=== PATIENT | male | born 1985 | race African-American/Black ===

== ENCOUNTER 2019-01-07 11:03 | Emergency (ER) | payer MEDICAID, OTHER ==
[~2019-01-07] VITALS: Ht 182.9 cm; Wt 102.3 kg
[~2019-01-07 11:03] MED LIST: DIVA-78 PO; LITH600 PO; QUET300T2 PO
[2019-01-07] MEDS ORDERED: QUEtiapine FUMARATE 100 MG TABLET PO ONE (12:00)
[2019-01-07 12:05] LABS: BASOPHILS % (AUTO) 0.8 % (0.0-2.0); EOSINOPHILS % (AUTO) 2.6 % (1.0-6.0); HEMATOCRIT 45.5 % (41-53); HEMOGLOBIN 14.9 g/dL (13.5-17.5); LYMPHOCYTES # (AUTO) 2.1 K/uL (1.0-4.8); LYMPHOCYTES % (AUTO) 20.8 % (22.0-44.0); MEAN CORPUSCULAR HEMOGLOBIN 31.4 pg (26.0-34.0); MEAN CORPUSCULAR HGB CONC 32.7 G/dL (31.0-37.0); MEAN CORPUSCULAR VOLUME 96 fL (80-100); MONOCYTES # (AUTO) 0.6 K/uL (0.1-1.0); MONOCYTES % (AUTO) 6.3 % (2.0-9.0); NEUTROPHILS % (AUTO) 69.5 % (40.0-70.0); PLATELET COUNT (AUTO) 271 K/uL (150-450); RED BLOOD CELL COUNT(AUTO) 4.74 MIL/uL (4.50-5.90); RED CELL DISTRIBUTION WIDTH 13.4 % (11.5-14.5)
[2019-01-07 12:17] LABS: LITHIUM 0.42 mmol/L (0.60-1.20)
[2019-01-07 12:22] LABS: ALANINE AMINOTRANSFERASE 91 U/L (12-78); ALBUMIN 4.1 g/dL (3.4-5.0); ALKALINE PHOSPHATASE 63 U/L (46-116); ANION GAP 14 mmol/L (8-16); ASPARTATE AMINOTRANSFERASE 83 U/L (15-37); BILIRUBIN,TOTAL 0.7 mg/dL (0.1-1.0); CALCIUM, TOTAL 9.6 mg/dL (8.8-10.5); CARBON DIOXIDE 28 mmol/L (22-29); CHLORIDE 100 mmol/L (98-107); GLOMERULAR FILTR. RATE CALC > 60 mL/min (>60); GLUCOSE,RANDOM 89 mg/dL (70-110); POTASSIUM 4.1 mmol/L (3.5-5.1); SODIUM SERUM 142 mmol/L (136-145); TOTAL PROTEIN, SERUM 7.5 g/dL (6.4-8.2); UREA NITROGEN, BLOOD 13 mg/dL (7-18)
[2019-01-07 12:26] LABS: VALPROIC ACID < 3 mcg/mL (50-100)
[2019-01-07 12:40] VITALS: BP 141/88
[2019-01-07 14:23] LABS: AMPHET/METH SCREEN,URINE NEGATIVE (NEGATIVE); BARBITURATE SCREEN, URINE NEGATIVE (NEGATIVE); BENZODIAZEPINES SCREEN,URINE NEGATIVE (NEGATIVE); CANNABINOID SCREEN,URINE POSITIVE (NEGATIVE); COCAINE SCREEN,URINE NEGATIVE (NEGATIVE); METHADONE SCREEN, URINE NEGATIVE (NEGATIVE); OPIATE SCREEN,URINE NEGATIVE (NEGATIVE)
[2019-01-07 14:28] LABS: PHENCYCLIDINE SCREEN,URINE POSITIVE (NEGATIVE)
== END 2019-01-07 12:44 | disposition home or self-care (01) ==
LOC: EMS 11:03
DX: F31.9 Bipolar disorder, unspecified (principal); R79.89 Other specified abnormal findings of blood chemistry; F17.210 Nicotine dependence, cigarettes, uncomplicated; Z88.8 Allergy status to other drugs, medicaments and biological substances; Z79.899 Other long term (current) drug therapy
CPT/HCPCS: 36415; 80053; 80164; 80178; 80307; 85025; 99284; 99406; G0480

== ENCOUNTER 2019-01-10 22:30 | Emergency (ER) | payer OTHER ==
[~2019-01-10] VITALS: Ht 188 cm; Wt 109.1 kg
[2019-01-11 03:30] VITALS: BP 142/88
== END 2019-01-11 03:54 | disposition home or self-care (01) ==
LOC: EMS 22:31
DX: M95.4 Acquired deformity of chest and rib (principal); F31.9 Bipolar disorder, unspecified; F20.9 Schizophrenia, unspecified; F17.210 Nicotine dependence, cigarettes, uncomplicated; F12.90 Cannabis use, unspecified, uncomplicated; Z88.8 Allergy status to other drugs, medicaments and biological substances

== ENCOUNTER 2019-01-19 10:43 | Inpatient (IN) | payer MEDICAID, OTHER ==
[~2019-01-19] VITALS: Ht 185.4 cm; Wt 91.2 kg
[~2019-01-19 10:43] MED LIST changes: -DIVA-78 PO
[2019-01-19 12:15] LABS: AMPHET/METH SCREEN,URINE NEGATIVE (NEGATIVE); BARBITURATE SCREEN, URINE NEGATIVE (NEGATIVE); BENZODIAZEPINES SCREEN,URINE NEGATIVE (NEGATIVE); CANNABINOID SCREEN,URINE POSITIVE (NEGATIVE); COCAINE SCREEN,URINE NEGATIVE (NEGATIVE); METHADONE SCREEN, URINE NEGATIVE (NEGATIVE); OPIATE SCREEN,URINE NEGATIVE (NEGATIVE)
[2019-01-19 12:16] LABS: PHENCYCLIDINE SCREEN,URINE POSITIVE (NEGATIVE)
[2019-01-19] MEDS ORDERED: LORazepam 2 MG/ML VIAL IM ONE (12:45)
[2019-01-19] MEDS ORDERED: ZIPRASIDONE MESYLATE 20 MG/VIAL IM ONE (12:45)
[2019-01-19 13:23] LABS: BASOPHILS % (AUTO) 1.3 % (0.0-2.0); EOSINOPHILS % (AUTO) 2.5 % (1.0-6.0); HEMATOCRIT 45.5 % (41-53); HEMOGLOBIN 15.1 g/dL (13.5-17.5); LYMPHOCYTES # (AUTO) 1.6 K/uL (1.0-4.8); LYMPHOCYTES % (AUTO) 29.2 % (22.0-44.0); MEAN CORPUSCULAR HEMOGLOBIN 31.6 pg (26.0-34.0); MEAN CORPUSCULAR HGB CONC 33.2 G/dL (31.0-37.0); MEAN CORPUSCULAR VOLUME 95 fL (80-100); MONOCYTES # (AUTO) 0.4 K/uL (0.1-1.0); MONOCYTES % (AUTO) 7.4 % (2.0-9.0); NEUTROPHILS # (AUTO) 3.2 K/uL (1.8-7.7); NEUTROPHILS % (AUTO) 59.6 % (40.0-70.0); PLATELET COUNT (AUTO) 278 K/uL (150-450); RED BLOOD CELL COUNT(AUTO) 4.78 MIL/uL (4.50-5.90); RED CELL DISTRIBUTION WIDTH 13.6 % (11.5-14.5)
[2019-01-19 13:30] LABS: ANION GAP 7 mmol/L (8-16); CALCIUM, TOTAL 9.4 mg/dL (8.8-10.5); CARBON DIOXIDE 29 mmol/L (22-29); CHLORIDE 104 mmol/L (98-107); CREATININE 1.38 mg/dL (0.60-1.30); GLOMERULAR FILTR. RATE CALC > 60 mL/min (>60); GLUCOSE,RANDOM 78 mg/dL (70-110); SODIUM SERUM 140 mmol/L (136-145); UREA NITROGEN, BLOOD 13 mg/dL (7-18)
[2019-01-19 13:36] LABS: ALANINE AMINOTRANSFERASE 64 U/L (12-78); ALKALINE PHOSPHATASE 58 U/L (46-116); ASPARTATE AMINOTRANSFERASE 33 U/L (15-37); BILIRUBIN,TOTAL 0.6 mg/dL (0.1-1.0); TOTAL PROTEIN, SERUM 7.6 g/dL (6.4-8.2)
[2019-01-19] MEDS ORDERED: OLANZapine 5 MG RAPDIS TABLET PO PRN (14:45)
[2019-01-19] MEDS ORDERED: ZOLPIDEM TARTRATE 10 MG TABLET PO PRN (14:45)
[2019-01-19 17:43] VITALS: BP 128/68
[2019-01-19] MEDS ORDERED: LOPERAMIDE HCL 2 MG CAPSULE PO PRN (17:45)
[2019-01-19] MEDS ORDERED: ONDANSETRON HCL 4 MG TABLET PO PRN (17:45)
[2019-01-19] MEDS ORDERED: MAGNESIUM HYDROXIDE SUSPENSION 30 ML UDCUP PO PRN (17:45)
[2019-01-19] MEDS ORDERED: IBUPROFEN 400 MG TABLET PO PRN (17:45)
[2019-01-19] MEDS ORDERED: ALBUTEROL SULFATE HFA 90 MCG/PUFF 8 GM INHALER IH PRN (17:45)
[2019-01-19] MEDS ORDERED: PETROLATUM,WHITE 28 GM JELLY TP PRN (17:45)
[2019-01-19] MEDS ORDERED: NICOTINE 14 MG/24 HOUR PATCH TD PRN (17:45)
[2019-01-19] MEDS ORDERED: CloNIDine HCL 0.1 MG TABLET PO PRN (17:45)
[2019-01-19] MEDS ORDERED: ACETAMINOPHEN 325 MG TABLET PO PRN (17:45)
[2019-01-19] MEDS ORDERED: DOCUSATE SODIUM 100 MG CAPSULE PO PRN (17:45)
[2019-01-19] MEDS ORDERED: MAG HYDROX/AL HYDROX/SIMETH ES 30 ML SUSPENSION UDCUP PO PRN (17:45)
[2019-01-19] MEDS ORDERED: GuaiFENesin/D-METHORPHAN [SUGAR-FREE] 200-20MG/10 ML SYRUP UDCUP PO PRN (17:45)
[2019-01-20 05:06] VITALS: BP 134/87
[2019-01-20] MEDS: LORazepam 2 MG TABLET PO PRN ×2 (05:33→11:40)
[2019-01-20 08:15] VITALS: BP 122/87
[2019-01-20 16:17] VITALS: BP 106/81
[2019-01-20] MEDS: QUEtiapine FUMARATE 200 MG TABLET PO SCH (20:58)
[2019-01-20] MEDS: LITHIUM CARBONATE 600 MG CAPSULE PO SCH (20:58)
[2019-01-21 03:39] VITALS: BP 114/78
[2019-01-21 08:07] VITALS: BP 138/84
[2019-01-21 08:45] LABS: BASOPHILS % (AUTO) 0.6 % (0.0-2.0); EOSINOPHILS % (AUTO) 1.7 % (1.0-6.0); HEMATOCRIT 45.1 % (41-53); HEMOGLOBIN 15.1 g/dL (13.5-17.5); LYMPHOCYTES # (AUTO) 1.8 K/uL (1.0-4.8); LYMPHOCYTES % (AUTO) 34.9 % (22.0-44.0); MEAN CORPUSCULAR HEMOGLOBIN 31.9 pg (26.0-34.0); MEAN CORPUSCULAR HGB CONC 33.4 G/dL (31.0-37.0); MEAN CORPUSCULAR VOLUME 95 fL (80-100); MONOCYTES # (AUTO) 0.3 K/uL (0.1-1.0); MONOCYTES % (AUTO) 6.7 % (2.0-9.0); NEUTROPHILS # (AUTO) 2.9 K/uL (1.8-7.7); NEUTROPHILS % (AUTO) 56.1 % (40.0-70.0); PLATELET COUNT (AUTO) 286 K/uL (150-450); RED BLOOD CELL COUNT(AUTO) 4.73 MIL/uL (4.50-5.90); RED CELL DISTRIBUTION WIDTH 13.6 % (11.5-14.5)
[2019-01-21] MEDS: LORazepam 2 MG TABLET PO PRN ×2 (08:59→16:52)
[2019-01-21 16:47] VITALS: BP 140/72
[2019-01-21] MEDS: QUEtiapine FUMARATE 200 MG TABLET PO SCH (20:04)
[2019-01-21] MEDS: LITHIUM CARBONATE 600 MG CAPSULE PO SCH (20:05)
[2019-01-22 02:11] VITALS: BP 122/78
[2019-01-22 08:49] VITALS: BP 133/69
[2019-01-22] MEDS ORDERED: QUET200T29 PO (09:08)
[2019-01-22] MEDS ORDERED: LITH600 PO (09:08)
[2019-01-22] MEDS: LORazepam 2 MG TABLET PO PRN (10:20)
== END 2019-01-22 13:35 | disposition home or self-care (01) | DRG 753 ==
LOC: EMS 10:44 → B3A 16:35
DX: F31.2 Bipolar disorder, current episode manic severe with psychotic features (principal); N17.9 Acute kidney failure, unspecified; F16.10 Hallucinogen abuse, uncomplicated; F12.10 Cannabis abuse, uncomplicated; F17.210 Nicotine dependence, cigarettes, uncomplicated; F10.10 Alcohol abuse, uncomplicated; Z59.0 Homelessness; Z79.899 Other long term (current) drug therapy; Z88.8 Allergy status to other drugs, medicaments and biological substances
CPT/HCPCS: 96372; 99291; G0480; J2060; J3486

== ENCOUNTER 2019-02-01 08:59 | Inpatient (IN) | payer MEDICAID, OTHER ==
[~2019-02-01] VITALS: Ht 185.4 cm; Wt 89.4 kg
[~2019-02-01 08:59] MED LIST changes: +QUET200T29 PO; -QUET300T2 PO
[2019-02-01] MEDS ORDERED: DiphenhydrAMINE HCL 50 MG/ML VIAL ONE (11:57)
[2019-02-01] MEDS ORDERED: LORazepam 2 MG/ML VIAL ONE (11:57)
[2019-02-01] MEDS ORDERED: LORazepam 2 MG/ML VIAL IM ONE (12:00)
[2019-02-01] MEDS ORDERED: DiphenhydrAMINE HCL 50 MG/ML VIAL IM ONE (12:00)
[2019-02-01] MEDS ORDERED: HALOPERIDOL LACTATE 5 MG/ML VIAL ONE (12:01)
[2019-02-01 12:51] LABS: BASOPHILS % (AUTO) 1.1 % (0.0-2.0); EOSINOPHILS % (AUTO) 3.1 % (1.0-6.0); HEMATOCRIT 42.3 % (41-53); LYMPHOCYTES % (AUTO) 35.5 % (22.0-44.0); MEAN CORPUSCULAR HEMOGLOBIN 31.5 pg (26.0-34.0); MEAN CORPUSCULAR HGB CONC 33.1 G/dL (31.0-37.0); MEAN CORPUSCULAR VOLUME 95 fL (80-100); MONOCYTES # (AUTO) 0.3 K/uL (0.1-1.0); MONOCYTES % (AUTO) 6.2 % (2.0-9.0); NEUTROPHILS % (AUTO) 54.1 % (40.0-70.0); PLATELET COUNT (AUTO) 245 K/uL (150-450); RED BLOOD CELL COUNT(AUTO) 4.45 MIL/uL (4.50-5.90)
[2019-02-01 13:14] LABS: ANION GAP 10 mmol/L (8-16); CALCIUM, TOTAL 8.9 mg/dL (8.8-10.5); CARBON DIOXIDE 26 mmol/L (22-29); CHLORIDE 104 mmol/L (98-107); CREATININE 1.13 mg/dL (0.60-1.30); GLOMERULAR FILTR. RATE CALC > 60 mL/min (>60); GLUCOSE,RANDOM 81 mg/dL (70-110); POTASSIUM 3.8 mmol/L (3.5-5.1); SODIUM SERUM 140 mmol/L (136-145); UREA NITROGEN, BLOOD 15 mg/dL (7-18)
[2019-02-01 13:19] LABS: ALANINE AMINOTRANSFERASE 51 U/L (12-78); ALBUMIN 3.6 g/dL (3.4-5.0); ALKALINE PHOSPHATASE 60 U/L (46-116); ASPARTATE AMINOTRANSFERASE 32 U/L (15-37); BILIRUBIN,TOTAL 0.2 mg/dL (0.1-1.0)
[2019-02-01 13:42] LABS: LITHIUM < 0.20 mmol/L (0.60-1.20)
[2019-02-01 18:27] LABS: AMPHET/METH SCREEN,URINE NEGATIVE (NEGATIVE); BARBITURATE SCREEN, URINE NEGATIVE (NEGATIVE); BENZODIAZEPINES SCREEN,URINE NEGATIVE (NEGATIVE); CANNABINOID SCREEN,URINE POSITIVE (NEGATIVE); COCAINE SCREEN,URINE NEGATIVE (NEGATIVE); METHADONE SCREEN, URINE NEGATIVE (NEGATIVE); OPIATE SCREEN,URINE NEGATIVE (NEGATIVE); PHENCYCLIDINE SCREEN,URINE POSITIVE (NEGATIVE)
[2019-02-01 20:28] VITALS: BP 114/75
[2019-02-01] MEDS ORDERED: GuaiFENesin/D-METHORPHAN [SUGAR-FREE] 200-20MG/10 ML SYRUP UDCUP PO PRN (20:45)
[2019-02-01] MEDS ORDERED: CloNIDine HCL 0.1 MG TABLET PO PRN (20:45)
[2019-02-01] MEDS ORDERED: ALBUTEROL SULFATE HFA 90 MCG/PUFF 8 GM INHALER IH PRN (20:45)
[2019-02-01] MEDS ORDERED: DOCUSATE SODIUM 100 MG CAPSULE PO PRN (20:45)
[2019-02-01] MEDS ORDERED: PETROLATUM,WHITE 28 GM JELLY TP PRN (20:45)
[2019-02-01] MEDS ORDERED: NICOTINE 14 MG/24 HOUR PATCH TD PRN (20:45)
[2019-02-01] MEDS ORDERED: ACETAMINOPHEN 325 MG TABLET PO PRN (20:45)
[2019-02-01] MEDS ORDERED: IBUPROFEN 400 MG TABLET PO PRN (20:45)
[2019-02-01] MEDS ORDERED: ONDANSETRON HCL 4 MG TABLET PO PRN (20:45)
[2019-02-01] MEDS ORDERED: MAG HYDROX/AL HYDROX/SIMETH ES 30 ML SUSPENSION UDCUP PO PRN (20:45)
[2019-02-01] MEDS ORDERED: LOPERAMIDE HCL 2 MG CAPSULE PO PRN (20:45)
[2019-02-01] MEDS ORDERED: MAGNESIUM HYDROXIDE SUSPENSION 30 ML UDCUP PO PRN (20:45)
[2019-02-02 04:12] VITALS: BP 149/85
[2019-02-02] MEDS: LORazepam 2 MG TABLET PO PRN ×3 (04:13→20:38)
[2019-02-02] MEDS: OLANZapine 5 MG RAPDIS TABLET PO PRN ×2 (04:13→16:35)
[2019-02-02 08:34] VITALS: BP 119/68
[2019-02-02 08:38] LABS: HEMOGLOBIN A1C 5.8 % (4.5-6.2)
[2019-02-02 08:51] LABS: CHOL/HDL RATIO 2.8 (4.2-7.3); THYROID STIMULATING HORMONE 0.56 uIU/mL (0.36-3.74)
[2019-02-02 16:42] VITALS: BP 139/97
[2019-02-02] MEDS: QUEtiapine FUMARATE 200 MG TABLET PO SCH (20:38)
[2019-02-02] MEDS: ZOLPIDEM TARTRATE 10 MG TABLET PO PRN (20:38)
[2019-02-02] MEDS: LITHIUM CARBONATE 300 MG CAPSULE PO SCH (20:38)
[2019-02-03 05:29] VITALS: BP 130/82
[2019-02-03] MEDS: LORazepam 2 MG TABLET PO PRN ×3 (09:00→20:40)
[2019-02-03 09:21] VITALS: BP 129/78
[2019-02-03 16:00] VITALS: BP 135/70
[2019-02-03] MEDS: OLANZapine 5 MG RAPDIS TABLET PO PRN (16:02)
[2019-02-03] MEDS: QUEtiapine FUMARATE 200 MG TABLET PO SCH (20:40)
[2019-02-03] MEDS: LITHIUM CARBONATE 300 MG CAPSULE PO SCH (20:40)
[2019-02-03] MEDS: ZOLPIDEM TARTRATE 10 MG TABLET PO PRN (20:40)
[2019-02-04 04:09] VITALS: BP 129/81
[2019-02-04 08:56] VITALS: BP 140/99
[2019-02-04] MEDS: OLANZapine 5 MG RAPDIS TABLET PO PRN ×2 (09:19→13:23)
[2019-02-04] MEDS: LORazepam 2 MG TABLET PO PRN ×2 (09:19→13:23)
[2019-02-04 16:00] VITALS: BP 130/90
[2019-02-04] MEDS: LITHIUM CARBONATE 300 MG CAPSULE PO SCH (21:36)
[2019-02-04] MEDS: QUEtiapine FUMARATE 200 MG TABLET PO SCH (21:36)
[2019-02-05 00:04] VITALS: BP 123/76
[2019-02-05] MEDS: LORazepam 2 MG TABLET PO PRN (00:05)
[2019-02-05] MEDS: ZOLPIDEM TARTRATE 10 MG TABLET PO PRN (00:06)
[2019-02-05 08:21] VITALS: BP 129/79
[2019-02-05] MEDS ORDERED: QUET200T29 PO (09:12)
[2019-02-05] MEDS ORDERED: LITH300C3 PO (09:12)
== END 2019-02-05 13:15 | disposition home or self-care (01) | DRG 753 ==
LOC: EMS 09:00 → B3A 20:11
DX: F31.2 Bipolar disorder, current episode manic severe with psychotic features (principal); N17.9 Acute kidney failure, unspecified; F12.10 Cannabis abuse, uncomplicated; F16.10 Hallucinogen abuse, uncomplicated; F17.200 Nicotine dependence, unspecified, uncomplicated; Z59.0 Homelessness; Z78.1 Physical restraint status; Z79.899 Other long term (current) drug therapy; F41.9 Anxiety disorder, unspecified
CPT/HCPCS: 83036; 84443; 87081; 93005; 96372; G0480; J1200; J1630; J2060